=== PATIENT | male | born 1960 | race Caucasian/White ===

== ENCOUNTER 2017-09-07 08:39 | Day surgery (SDC) | payer OTHER ==
[2017-09-07] MEDS ORDERED: ASPIRIN EC 325 MG TAB PO ONE (08:46)
[2017-09-07] MEDS ORDERED: NS 1,000 ML IV ONE (08:46)
[2017-09-07] MEDS ORDERED: DIAZEPAM 5 MG TAB PO ONE (08:46)
[2017-09-07] MEDS ORDERED: FAMOTIDINE 20 MG TAB PO ONE (08:46)
[2017-09-07] MEDS ORDERED: diphenhydrAMINE 25 MG CAP PO ONE (08:46)
--- NOTE | 2017-09-07 09:32 | CPEKG ---
Heart Rate: 65 RR Interval: 923 P-R Interval: 156 QRSD Interval: 100 QT Interval: 400 QTC Interval: 416 P Rogers: 64 QRS Rogers: 25 T Wave Rogers: -6 EKG Severity - ABNORMAL ECG - EKG Impression: SINUS RHYTHM EKG Impression: PROBABLE LEFT VENTRICULAR HYPERTROPHY EKG Impression: ABNORMAL T, CONSIDER ISCHEMIA, INFERIOR LEADS EKG Impression: ANTERIOR ST ELEVATION, PROBABLY DUE TO LVH Electronically Signed By: Juve Mcwilliams 07-Sep-2017 13:51:21
[2017-09-07 09:36] LABS: PLATELET COUNT 219 10^3/uL (150-400)
[2017-09-07 09:45] LABS: INR 1.07 (0.83-1.16); PROTIME(PATIENT) 14.1 SEC (12.0-15.0)
[2017-09-07] MEDS ORDERED: fentaNYL 100 MCG/2 ML INJ ONE (09:45)
[2017-09-07] MEDS ORDERED: MIDAZOLAM 2 MG/2 ML VIAL ONE (09:45)
[2017-09-07] MEDS ORDERED: LIDOCAINE 1% 300 MG/30 ML SDV ONE (09:45)
[2017-09-07] MEDS ORDERED: IOPAMIDOL (ISOVUE-370) 150 ML BTL IV ONE (09:45)
--- NOTE | 2017-09-07 10:06 | PDHPUP ---
History & Physical Update H&P update statement: This history and physical update is based on an assessment of the patient which was completed after admission or registration (within 24 hours), but prior to the surgery/procedure.
--- NOTE | 2017-09-07 10:06 | PDPROPOC ---
Sedation Plan of Care ASA Classification: ASA 1 Mallampati Score: Class 1 Mallampati Reference Image: Patient passed 3-3-2 rule?: Yes
--- NOTE | 2017-09-07 10:18 | PDGENHP ---
History & Physical History of Present Illness: hx of sob and known severe mr for surgical repair. no cp. no fever chills cough. no new complaints Pertinent Past, Social, Family History: no change from office note Relevant Physical Exam: s1s2 3/6 hsm llsb. lungs clear. neuro nl. ext no edema Cardiorespiratory Assessment: severe MR. excellant cv / neuro vasc / pulm / gi and systemic condition otherwise. all ? ans for he and . wishes to proceed /. aware of risk and options. test requested at this time by his CV surgeons.
[2017-09-07] MEDS ORDERED: OXYCODONE/APAP 5/325 TAB PO PRN (11:06)
[2017-09-07] MEDS ORDERED: HYDROCODONE/APAP 5/325 TAB PO PRN (11:06)
[2017-09-07] MEDS ORDERED: NITROGLYCERIN 0.4 MG BTL SL PRN (11:06)
[2017-09-07] MEDS ORDERED: ONDANSETRON 4 MG/2 ML VIAL IVP PRN (11:06)
[2017-09-07] MEDS ORDERED: ATROPINE SULFATE 1 MG/10 ML SYR IVP PRN (11:06)
--- NOTE | 2017-09-07 11:43 | CPIP ---
[f rep st] INVASIVE CARDIAC PROCEDURE PROCEDURES PERFORMED: 1. Right and left coronary arteriogram. 2. Left and right coronary angiography. 3. Left heart catheterization. 4. Left ventriculogram. INDICATIONS: The patient has severe mitral regurgitation and is going for mitral valve repair. He n eeded preoperative clearance of coronary anatomy. PROCEDURE: The patient had the above procedure without any complications in normal fashion. FINDINGS: 1. Left main coronary artery normal. 2. Left anterior descending artery normal. 3. Left circumflex coronary artery normal and codominant. 4. Right coronary artery is normal and codominant and has no stenosis whatsoever. Left heart catheterization: Left ventricular end-diastolic pressure was 14 mmHg. There was no aortic stenosis. Left ventriculogram: Normal left ventricular chamber dimension, 3 to 4+ mitral regurgitation with a very large left atrium. Normal LV systolic function. No regional wall motion abnormalities. COMPLICATIONS: None. Results were discussed with the patient and his and all questions answered. /[id number]/MODL
== END 2017-09-07 15:46 | disposition home or self-care (01) ==
LOC: FCATH 08:39
PROVIDERS: ATTEND Internal Medicine
PROC: B2151ZZ Fluoroscopy of Left Heart using Low Osmolar Contrast (ICD-10-PCS; principal; 2017-09-07)
PROC: B2111ZZ Fluoroscopy of Multiple Coronary Arteries using Low Osmolar Contrast (ICD-10-PCS; principal; 2017-09-07)
PROC: 4A023N7 Measurement of Cardiac Sampling and Pressure, Left Heart, Percutaneous Approach (ICD-10-PCS; principal; 2017-09-07)
DX: I34.0 Nonrheumatic mitral (valve) insufficiency (principal)
CPT/HCPCS: C1760; J1644; J2250; J3010; Q9967